=== PATIENT | female | born 1995 | race Caucasian/White ===

== ENCOUNTER 2024-08-22 13:04 | Emergency (ER) | payer OTHER, SELFPAY ==
[2024-08-22 13:25] VITALS: BP 120/66; PULSE 88; RESP 16; TEMP 37.1; O2SAT 100; BMI 23.3
--- NOTE | 2024-08-22 13:40 | DI.US.S_ITS ---
PROCEDURE: US OB <= 14 WEEKS FETUS INDICATIONS: PAIN OUTSIDE/PRIOR DATING DATA: Last menstrual period (LMP): 07/24/2024 LMP-based estimated date of delivery (ANIYA): 04/30/2025 TECHNIQUE: Real-time scanning was performed of the fetus and maternal pelvic organs, with image documentation. Endovaginal scanning was also performed to better visualize the fetus and maternal ovaries. COMPARISON: None. FINDINGS: No intrauterine fluid collection or gestational sac is seen. Within the right adnexa separate from the ovary, there is a probable gestational sac measuring 1.1 x 0.5 x 0.5 cm with yolk sac. No pole is seen. Complex free fluid is seen in the right adnexa. Left ovary is unremarkable. IMPRESSION: Right adnexal mass is seen separate from the ovary with probable gestational sac and yolk sac, highly suspicious for ectopic . Moderate complex free fluid in the right adnexa. Findings were discussed with the referring provider, Dr. Batista, by telephone on 08/22/2024 at 3:29 PM. Approved by: Yomi Vivar M.D. on 08/22/2024 at 15:30
[2024-08-22 13:48] LABS: Add Manual Diff / Slide Review NO; Basophils Absolute Auto 100 /uL (0-100); Basophils Percent Auto 1.1 % (0-2); Eosinophils Absolute Auto 0 /uL (0-450); Eosinophils Percent Auto 0.7 % (2-4); Hematocrit 35.6 % (36-46); Hemoglobin 12.3 g/dL (12.0-16.0); Lymphocytes Absolute Auto 2000 /uL (1100-4500); Lymphocytes Percent Auto 27.6 % (25-40); Mean Corpuscular HGB Conc 34.6 % (30-36); Mean Corpuscular Hemoglobin 34.2 PG (26-34); Mean Corpuscular Volume 98.7 fL (80-100); Monocytes Absolute Auto 500 /uL (0-900); Monocytes Percent Auto 7.2 % (3-14); Neutrophils Absolute Auto 4600 /uL (1500-7000); Neutrophils Percent Auto 63.4 % (50-75); Platelet Count 282 X10^3/uL (150-400); Red Blood Cell Count 3.61 X10^6/uL (4.0-5.2); White Blood Cell Count 7.3 X10^3/uL (4.5-11.0)
[2024-08-22 14:08] LABS: Alanine Aminotransferase 24 IU/L (<35); Albumin 4.8 g/dL (3.5-5.0); Albumin Globulin Ratio 1.7 (1.0-2.8); Alkaline Phosphatase 44 U/L (38-126); Aspartate Aminotransferase 27 IU/L (14-36); BUN Creatinine Ratio 26.6 (6-22); Bilirubin Total 0.4 mg/dL (0.2-1.3); Blood Urea Nitrogen 17 mg/dL (7-17); Calcium 9.1 mg/dL (8.4-10.2); Carbon Dioxide 22 mmol/L (22-32); Chloride 103 mmol/L (98-107); Estimated Glomerular Filt Rate > 60 mL/min (>60); Globulin 2.8 g/dL (1.7-4.1); Glucose 94 mg/dL (70-100); HEMOLYSIS < 15 (0-50); Potassium 3.7 mmol/L (3.4-5.1); Sodium 136 mmol/L (137-145); Total Protein 7.6 g/dL (6.3-8.2)
[2024-08-22 14:26] LABS: HCG Quantitative /Beta subunit 2953.5 mIU/mL
[2024-08-22 15:38] VITALS: BP 124/74; PULSE 100; RESP 16; O2SAT 100
--- NOTE | 2024-08-22 15:47 | ED_ITS ---
HPI - Abdominal Pain General Chief Complaint: Abdominal Pain Stated Complaint: 4-5 weeks gestation severe abd/pelvic pain Time Seen by Provider: 08/22/24 15:21 Source: patient Mode of arrival: Ambulatory History of Present Illness HPI narrative: Patient is a female who presents with severe abdominal and pelvic cramps for the last few hours. She reports experiencing a little nausea this morning and dizziness when the cramps first started. She denies any vaginal bleeding or discharge. This is her first , and she has not yet seen an OBGYN, with her first appointment scheduled at nine weeks. Her last menstrual period was on July 24. She has no significant past medical history. Past Medical History: None reported. Related Data Home Medications Medication Instructions Recorded Confirmed [id number] 1 mg 1 tab PO DAILY 08/22/24 08/22/24 tablet Allergies Allergy/AdvReac Type Severity Reaction Status Date / Time No Known Drug Allergies Allergy Verified 08/22/24 13:29 Review of Systems Review of Systems Narrative: Constitutional: Reports dizziness. Gastrointestinal: Reports severe abdominal and pelvic cramps, nausea. Genitourinary: Denies vaginal bleeding or discharge. Respiratory: No shortness of breath. Cardiovascular: No chest pain or palpitations. Neurologic: No headaches or focal weakness. Musculoskeletal: No joint pain or swelling. Skin: No rashes or lesions. Psychiatric: No anxiety or depression. Patient History Medical History (Updated 08/22/24 @ 18:13 by Mason Batista MD) No significant medical problems Surgical History (Updated 08/22/24 @ 16:35 by Eladia Quezada DO) No significant past surgical history Social History Smoking Status: Never smoker Smoking Status: Never smoker Exam Narrative Exam Narrative: General: Well appearing, well nourished, in no distress. Skin: Good turgor, no rash, unusual bruising or prominent lesions. Head: Normocephalic, atraumatic. HEENT: Conjunctiva clear, EOM intact, PERRL, Mucous membranes moist. Neck: Supple, normal ROM. Heart: Regular rate and rhythm, no murmur or gallop or rubs. Lungs: Clear to auscultation. No rales, rhonchi, or wheezes. Abdomen: Soft and nontender. Bowel sounds normal. No mass or hernia. Back: Spine normal without deformity or tenderness, no CVA tenderness. Extremities: No deformities, edema. Peripheral pulses intact. Neurologic: CN 2-12 normal. Normal sensation and motor exam. Psychiatric: Oriented X3. Normal mood and affect. Initial Vital Signs Initial Vital Signs: Vital Signs Temperature 98.7 F 08/22/24 13:25 Pulse Rate 88 08/22/24 13:25 Respiratory Rate 16 08/22/24 13:25 Blood Pressure 120/66 08/22/24 13:25 Pulse Oximetry 100 08/22/24 13:25 Oxygen Delivery Method Room Air 08/22/24 13:25 Course Orders Ordered: ED Orders 08/22/24 13:40 US OB <= 14 weeks fetus Stat ABO RH Type Stat Complete Blood Count AUTO DIFF Stat Comprehensive Metabolic Panel Stat HCG Quantitative /Beta subunit Stat Discontinued Medications Methotrexate (Methotrexate 25 Mg/Ml Vial) 90 mg 50 mg/m2 (90 mg) IM NOW ONE Stop: 08/22/24 16:32 Vital Signs Vital signs: Vital Signs - 8 hr 08/22/24 13:25 08/22/24 15:38 08/22/24 16:00 Temperature 98.7 F Pulse Rate 88 100 H 134 H Respiratory Rate 16 16 Blood Pressure 120/66 124/74 Pulse Oximetry 100 100 100 Oxygen Delivery Method Room Air Room Air 08/22/24 16:01 08/22/24 16:01 08/22/24 16:30 Temperature Pulse Rate 134 H Respiratory Rate Blood Pressure 169/87 H 123/70 Pulse Oximetry 100 Oxygen Delivery Method 08/22/24 16:30 Temperature Pulse Rate 86 Respiratory Rate Blood Pressure Pulse Oximetry 99 Oxygen Delivery Method MDM - Abdominal Pain Lab Data 08/22/24 13:40 08/22/24 13:40 Labs: Lab Results 08/22/24 Range/Units 13:40 WBC 7.3 (4.5-11.0) X10^3/uL RBC 3.61 L (4.0-5.2) X10^6/uL Hgb 12.3 (12.0-16.0) g/dL Hct 35.6 L (36-46) % MCV 98.7 (80-100) fL MCH 34.2 H (26-34) PG MCHC 34.6 (30-36) % RDW 12.0 (11.6-14.8) % Plt Count 282 (150-400) X10^3/uL Neut % (Auto) 63.4 (50-75) % Lymph % (Auto) 27.6 (25-40) % [place] % (Auto) 7.2 (3-14) % Eos % (Auto) 0.7 L (2-4) % Baso % (Auto) 1.1 (0-2) % Neut # (Auto) 4600 (7428-7359) /uL Lymph # (Auto) 2000 (4240-7218) /uL [place] # (Auto) 500 (0-900) /uL Eos # (Auto) 0 (0-450) /uL Baso # (Auto) 100 (0-100) /uL Sodium 136 L (137-145) mmol/L Potassium 3.7 (3.4-5.1) mmol/L Chloride 103 (98-107) mmol/L Carbon Dioxide 22 (22-32) mmol/L BUN 17 (7-17) mg/dL Creatinine 0.64 (0.52-1.04) mg/dL Estimated GFR > 60 (>60) mL/min BUN/Creatinine Ratio 26.6 H (6-22) Glucose 94 (70-100) mg/dL Calcium 9.1 (8.4-10.2) mg/dL Total Bilirubin 0.4 (0.2-1.3) mg/dL AST 27 (14-36) IU/L ALT 24 (<35) IU/L Alkaline Phosphatase 44 (38-126) U/L Total Protein 7.6 (6.3-8.2) g/dL Albumin 4.8 (3.5-5.0) g/dL Globulin 2.8 (1.7-4.1) g/dL Albumin/Globulin Ratio 1.7 (1.0-2.8) HCG, Quant 2953.5 mIU/mL Blood Type O Positive Point of care testing: Point of Care Testing Test Results Positive Urine Dip Bedside Urine Glucose Negative Bedside Urine Bilirubin - Negative Bedside Urine Ketone - Negative Urine Specific [place] 1.015 Bedside Urine Occult Blood - Negative Bedside Urine pH 6.0 Bedside Urine Protein - Negative Bedside Urine Urobilinogen - Negative Bedside Urine Nitrite - Negative Bedside Urine Leukocytes - Negative Esterase MDM Narrative Medical decision making narrative: INITIAL EVALUATION AND PLAN: - Ultrasound indicates an ectopic located in the adnexa. - Obtain lab work. - Consult with OBGYN specialists for management options. - Monitor for signs of bleeding or complications. - Provide patient support and reassurance. - Ensure patient understands the situation and the importance of follow-up care for future healthy pregnancies. - Differential diagnosis includes but is not limited to: ectopic , miscarriage, pelvic inflammatory disease, ovarian torsion. -patient presents hemodynamically stable in no acute distress but with abdominal cramping in the context of active , patient's ultrasound concerning for right-sided ectopic with moderate free fluid. Patient currently not hypotensive or significantly tachycardic at this time. IV access obtained, basic labs pulled including type and screen as well as blood type and Rh eval. OBGYN called promptly who will come and evaluate the patient in the emergency department review labs imaging and make decision on OR versus other care options. -OBGYN presents at the bedside, patient remains hemodynamically stable and not in any acute distress, patient opts for methotrexate therapy which was administered in the emergency department she will need to follow up for beta rechecks on Sunday and Sunday of next week and continue to follow up with the OBGYN clinic. These followups have been coordinated by the OBGYN team. Patient given instructions for return precautions and discharged from the ED Discharge Plan Departure Patient Disposition: Home Clinical Impression: Ectopic Activity Restrictions/Additional Instructions: You were seen in the emergency department today and found to have an ectopic and were able to speak about this with the OBGYN and opted for medical management with methotrexate. Please follow-up with the outpatient labs on Sunday and Sunday of next week as he will need repeat lab testing. If you have not been contacted by the OBGYN team by Sunday for a follow up appointment please call them to make 1, if you have worsening abdominal pain feelings of passing out, significant vaginal bleeding please return to the ED for re-evaluation. Prescriptions: No Action Pre-F Vitamin 1 mg Tablet 1 tab PO DAILY Referrals: Miscellaneous,DoctorMD [Primary Care Provider] - Eladia Quezada DO [Physician] - Stand Alone Forms: Patient Portal/API/Survey
[2024-08-22 16:00] VITALS: PULSE 134; O2SAT 100
[2024-08-22 16:01] VITALS: BP 169/87; PULSE 134; O2SAT 100
[2024-08-22 16:30] VITALS: BP 123/70; PULSE 86; O2SAT 99
--- NOTE | 2024-08-22 16:30 | P.CONS_ITS ---
History of Present Illness Consult details Date Patient Seen: 08/22/24 Time Patient Seen: 16:10 Chief complaint: 4-5 weeks gestation severe abd/pelvic pain Reason for consult: ectopic Requesting provider: Mason Batista Narrative: 28-year-old at approximately 4-5 weeks' gestation, presented to the ER today for abdominal pain. She reports that the pain started this morning, and is located in her mid pelvic region. She denies nausea or vomiting. Has not had any vaginal bleeding since her last period. Meds Home Medications and Allergies Home Medications Medication Instructions Recorded Confirmed Type [id number]-FA 1 mg 1 tab PO DAILY 08/22/24 08/22/24 History tablet Allergies Allergy/AdvReac Type Severity Reaction Status Date / Time No Known Drug Allergies Allergy Verified 08/22/24 13:29 Review of Systems Review of Systems ROS: Yes All systems reviewed with the patient and are negative except as otherwise documented Exam Vital Signs (past 8 hours): - 08/22/24 13:25 08/22/24 15:38 Temperature 98.7 F Pulse Rate 88 100 H Respiratory Rate 16 16 Blood Pressure 120/66 124/74 Pulse Oximetry 100 100 Oxygen Delivery Method Room Air Room Air Oxygen Delivery Method Room Air Const General: healthy appearing, comfortable and No acute distress Resp Effort & Inspection: normal respiratory effort and able to speak in complete sentences GI Palpation: soft and No guarding Neuro Cognition: normal cognition Speech: speech normal Objective Imaging US - abdomen: Radiologist's impression: FINDINGS: No intrauterine fluid collection or gestational sac is seen. Within the right adnexa separate from the ovary, there is a probable gestational sac measuring 1.1 x 0.5 x 0.5 cm with yolk sac. No pole is seen. Complex free fluid is seen in the right adnexa. Left ovary is unremarkable. IMPRESSION: Right adnexal mass is seen separate from the ovary with probable gestational sac and yolk sac, highly suspicious for ectopic . Moderate complex free fluid in the right adnexa. Findings were discussed with the referring provider, Dr. Batista, by telephone on 08/22/2024 at 3:29 PM. Approved by: Yomi Vivar M.D. on 08/22/2024 at 15:30 Labs 08/22/24 13:40 08/22/24 13:40 Labs: Laboratory Results - last 24 hr 08/22/24 13:40 WBC 7.3 RBC 3.61 L Hgb 12.3 Hct 35.6 L MCV 98.7 MCH 34.2 H MCHC 34.6 RDW 12.0 Plt Count 282 Neut % (Auto) 63.4 Lymph % (Auto) 27.6 [place] % (Auto) 7.2 Eos % (Auto) 0.7 L Baso % (Auto) 1.1 Neut # (Auto) 4600 Lymph # (Auto) 2000 [place] # (Auto) 500 Eos # (Auto) 0 Baso # (Auto) 100 Sodium 136 L Potassium 3.7 Chloride 103 Carbon Dioxide 22 BUN 17 Creatinine 0.64 Estimated GFR > 60 BUN/Creatinine Ratio 26.6 H Glucose 94 Calcium 9.1 Total Bilirubin 0.4 AST 27 ALT 24 Alkaline Phosphatase 44 Total Protein 7.6 Albumin 4.8 Globulin 2.8 Albumin/Globulin Ratio 1.7 HCG, Quant 2953.5 Blood Type O Positive [facility] Medical History (Updated 08/22/24 @ 16:39 by Eladia Quezada DO) No significant medical problems Surgical History (Updated 08/22/24 @ 16:35 by Eladia Quezada DO) No significant past surgical history Tobacco & Substance Use Smoking Status: Never smoker Assessment & Plan Assessment and plan (1) Ectopic : Qualifiers: Intrauterine status: without intrauterine L aterality: right Location of ectopic : tubal Qualified Code(s): O 00.101 - Right tubal without intrauterine Status: Acute Assessment & Plan narrative: 28-year-old with ultrasound findings today consistent with an ectopic . She is hemodynamically stable without signs of rupture at this time. We discussed treatment options with either methotrexate or surgery, and patient desires to proceed with methotrexate therapy. Plan for single dose protocol, to be administered prior to discharge from the ER today. -instructed patient to go to the lab on days 4 and 7 (Sunday and Sunday next week) for HCG quant -instructed patient to stop her vitamin and avoid foods with high folic acid content; we also discussed side effects of abdominal pain and nausea being the primary ones experienced after methotrexate -I will follow up with the patient next Sunday after I see her 2nd HCG value -I reviewed precautions with patient, and advised to return to the ER if she develops severe abdominal pain Time-Based Coding :: [30min] spent with patient and on the chart (including review of chart, obtaining history, exam, reviewing outside data, placing orders, documenting exam and treatment plan, and counseling patient) on [08/22/24]. PROFEE Charge Codes Inpatient or Observation consultation: [id number]
[2024-08-22 17:54] VITALS: BP 112/76; PULSE 88; RESP 16; O2SAT 99
== END 2024-08-22 18:22 | disposition home or self-care (01) ==
PROVIDERS: Emergency Provider Emergency Medicine
DX: O00.90 Unspecified ectopic pregnancy without intrauterine pregnancy (principal); R42 Dizziness and giddiness; R10.2 Pelvic and perineal pain
CPT/HCPCS: 36415; 76801; 80053; 81003; 81025; 84702; 85025; 86900; 86901; 96372; 99284; J9250

== ENCOUNTER 2024-08-24 15:14 | Emergency (ER) | payer OTHER, SELFPAY ==
[2024-08-24 15:46] VITALS: BP 117/76; PULSE 93; RESP 18; TEMP 36.7; O2SAT 100; BMI 24.3
--- NOTE | 2024-08-24 15:53 | DI.US.S_ITS ---
PROCEDURE: US OB <= 14 WEEKS FETUS INDICATIONS: known right ectopic, new pain OUTSIDE/PRIOR DATING DATA: Last menstrual period (LMP): 07/24/2024. LMP-based estimated date of delivery (ANIYA): 04/30/2025. First dating scan (date and location): Not applicable. TECHNIQUE: Real-time scanning was performed of the fetus and maternal pelvic organs, with image documentation. Endovaginal scanning was also performed to better visualize the fetus and maternal ovaries. COMPARISON: [facility], , OB <= 14 WEEKS FETUS, 08/22/2024, 14:49. FINDINGS: There is a right adnexal ectopic again seen, with a gestational sac and a yolk sac. The gestational sac demonstrates a mean diameter of 0.9 cm. No pole is seen at this time. Surrounding increased vascularity can be seen. There is moderate volume of complex free fluid seen. IMPRESSION: The known right adnexal ectopic demonstrates mild increase in size of the gestational sac. Adjacent hemorrhage is seen. We strive to produce accurate, complete, and clear reports of imaging services. To assist us in improving patient care, this report was composed using standard report templates and voice recognition software. Therefore, it may contain abnormal punctuation, insertions and/or omissions. Occasional wrong-word or sound-alike substitutions may occur. Though we review the report and make efforts to correct it, we do recommend that the report be read carefully in proper context to recognize any text inaccuracies. Dictated by: Montana Cedeno M.D. on 08/24/2024 at 16:31 Approved by: Montana Cedeno M.D. on 08/24/2024 at 16:33
[2024-08-24 16:12] LABS: Add Manual Diff / Slide Review NO; Basophils Absolute Auto 100 /uL (0-100); Basophils Percent Auto 0.6 % (0-2); Eosinophils Absolute Auto 0 /uL (0-450); Eosinophils Percent Auto 0.4 % (2-4); Hematocrit 37.7 % (36-46); Lymphocytes Absolute Auto 2100 /uL (1100-4500); Lymphocytes Percent Auto 17.5 % (25-40); Mean Corpuscular HGB Conc 34.5 % (30-36); Mean Corpuscular Hemoglobin 34.1 PG (26-34); Mean Corpuscular Volume 98.9 fL (80-100); Monocytes Absolute Auto 700 /uL (0-900); Monocytes Percent Auto 5.5 % (3-14); Neutrophils Absolute Auto 9000 /uL (1500-7000); Platelet Count 292 X10^3/uL (150-400); Red Blood Cell Count 3.81 X10^6/uL (4.0-5.2); Red Cell Distribution Width 12.1 % (11.6-14.8); White Blood Cell Count 11.8 X10^3/uL (4.5-11.0)
[2024-08-24 16:26] LABS: Alanine Aminotransferase 32 IU/L (<35); Albumin 4.8 g/dL (3.5-5.0); Albumin Globulin Ratio 1.5 (1.0-2.8); Alkaline Phosphatase 53 U/L (38-126); Aspartate Aminotransferase 30 IU/L (14-36); BUN Creatinine Ratio 15.6 (6-22); Bilirubin Total 0.5 mg/dL (0.2-1.3); Blood Urea Nitrogen 10 mg/dL (7-17); Calcium 9.1 mg/dL (8.4-10.2); Carbon Dioxide 20 mmol/L (22-32); Chloride 104 mmol/L (98-107); Estimated Glomerular Filt Rate > 60 mL/min (>60); Globulin 3.1 g/dL (1.7-4.1); Glucose 99 mg/dL (70-100); HEMOLYSIS < 15 (0-50); Sodium 135 mmol/L (137-145); Total Protein 7.9 g/dL (6.3-8.2)
[2024-08-24 18:22] VITALS: BP 119/71; PULSE 78; RESP 16; O2SAT 97
--- NOTE | 2024-08-24 19:50 | PC.NURSE ---
pt informed this nurse that the [facility] would be calling to ask about her condition d/t her significant other being in the [place] as they would be assisting in him returning home to be with her. pt stated that she gave her permission to discuss with the [facility] her condition and to provide any information they needed.
--- NOTE | 2024-08-24 19:59 | ED_ITS ---
HPI - Abdominal Pain General Chief Complaint: Abdominal Pain Stated Complaint: severe abd cramps Time Seen by Provider: 08/24/24 19:59 Source: patient Mode of arrival: Ambulatory History of Present Illness HPI narrative: 28-year-old female history of ectopic comes into the ED from home for evaluation of persistent pain after known ectopic . States that she was given the methotrexate shot on 08/22/2024 but started having worsening abdominal cramping earlier this morning states that she woke up also noted some light brown spotting vaginal discharge therefore decided come into the ED for further evaluation treatment. She denies any other symptoms such as headache visual disturbances chest pain shortness of breath fever chills or any other GI/ symptoms Related Data Home Medications Medication Instructions Recorded Confirmed [id number] 1 mg 1 tab PO DAILY 08/22/24 08/22/24 tablet Allergies Allergy/AdvReac Type Severity Reaction Status Date / Time No Known Drug Allergies Allergy Verified 08/24/24 15:46 Patient History Medical History (Updated 08/24/24 @ 20:56 by Clyde Ledesma DO) No significant medical problems Surgical History (Updated 08/22/24 @ 16:35 by Eladia Quezada DO) No significant past surgical history Social History Smoking Status: Never smoker Smoking Status: Never smoker Exam Initial Vital Signs Initial Vital Signs: Vital Signs Temperature 98.0 F 08/24/24 15:46 Pulse Rate 93 H 08/24/24 15:46 Respiratory Rate 18 08/24/24 15:46 Blood Pressure 117/76 08/24/24 15:46 Pulse Oximetry 100 08/24/24 15:46 Oxygen Delivery Method Room Air 08/24/24 15:46 Course Orders Ordered: ED Orders 08/24/24 15:53 US OB <= 14 weeks fetus Stat 08/24/24 16:02 CBC Auto Diff [Complete Blood Count AUTO DIFF] Stat Comprehensive Metabolic Panel Stat HCG Quantitative /Beta subunit Stat Sodium Chloride (Normal Saline 0.9%) 1,000 mls @ 1,000 mls/hr IV BOLUS ONE Stop: 08/24/24 21:13 Last Admin: 08/24/24 20:39 Dose: 1,000 mls/hr Discontinued Medications Morphine Sulfate (Morphine 4 Mg/Ml Inj) 4 mg IV NOW ONE Stop: 08/24/24 20:15 Last Admin: 08/24/24 20:40 Dose: 4 mg Vital Signs Vital signs: Vital Signs - 8 hr 08/24/24 15:46 08/24/24 18:22 08/24/24 20:40 Temperature 98.0 F Pulse Rate 93 H 78 Respiratory Rate 18 16 Blood Pressure 117/76 119/71 116/69 Pulse Oximetry 100 97 Oxygen Delivery Method Room Air Room Air 08/24/24 20:40 Temperature Pulse Rate 94 H Respiratory Rate Blood Pressure Pulse Oximetry 99 Oxygen Delivery Method MDM - Abdominal Pain Differential Diagnosis Differential diagnosis: Likely other (Ruptured ectopic, ectopic , electrolyte abnormality, urinary tract infection) Lab Data 08/24/24 16:02 08/24/24 16:02 Labs: Lab Results 08/24/24 Range/Units 16:02 WBC 11.8 H (4.5-11.0) X10^3/uL RBC 3.81 L (4.0-5.2) X10^6/uL Hgb 13.0 (12.0-16.0) g/dL Hct 37.7 (36-46) % MCV 98.9 (80-100) fL MCH 34.1 H (26-34) PG MCHC 34.5 (30-36) % RDW 12.1 (11.6-14.8) % Plt Count 292 (150-400) X10^3/uL Neut % (Auto) 76.0 H (50-75) % Lymph % (Auto) 17.5 L (25-40) % [place] % (Auto) 5.5 (3-14) % Eos % (Auto) 0.4 L (2-4) % Baso % (Auto) 0.6 (0-2) % Neut # (Auto) 9000 H (5868-1782) /uL Lymph # (Auto) 2100 (2482-2050) /uL [place] # (Auto) 700 (0-900) /uL Eos # (Auto) 0 (0-450) /uL Baso # (Auto) 100 (0-100) /uL Sodium 135 L (137-145) mmol/L Potassium 4.0 (3.4-5.1) mmol/L Chloride 104 (98-107) mmol/L Carbon Dioxide 20 L (22-32) mmol/L BUN 10 (7-17) mg/dL Creatinine 0.64 (0.52-1.04) mg/dL Estimated GFR > 60 (>60) mL/min BUN/Creatinine Ratio 15.6 (6-22) Glucose 99 (70-100) mg/dL Calcium 9.1 (8.4-10.2) mg/dL Total Bilirubin 0.5 (0.2-1.3) mg/dL AST 30 (14-36) IU/L ALT 32 (<35) IU/L Alkaline Phosphatase 53 (38-126) U/L Total Protein 7.9 (6.3-8.2) g/dL Albumin 4.8 (3.5-5.0) g/dL Globulin 3.1 (1.7-4.1) g/dL Albumin/Globulin Ratio 1.5 (1.0-2.8) HCG, Quant 5528.0 mIU/mL Point of care testing: Urine Dip Bedside Urine Glucose Negative Bedside Urine Bilirubin - Negative Bedside Urine Ketone +/- 5 Urine Specific [place] 1.010 Bedside Urine Occult Blood - Negative Bedside Urine pH 6.0 Bedside Urine Protein - Negative Bedside Urine Urobilinogen - Negative Bedside Urine Nitrite - Negative Bedside Urine Leukocytes - Negative Esterase Imaging Data US - DYE TANK TENDER: Radiologist's Impression: [place] [address] Ultrasound Report Signed Patient: Cathleen Tinoco MR#: [id number] : 1995 Acct:[id number] Age/Sex: 28 / F Date of Service: 08/24/24 Loc: ED Accession Number: [id number] Procedure: US OB <= 14 weeks fetus Ordering Provider: Merlin Coffey MD PROCEDURE: US OB <= 14 WEEKS FETUS INDICATIONS: known right ectopic, new pain OUTSIDE/PRIOR DATING DATA: Last menstrual period (LMP): 07/24/2024. LMP-based estimated date of delivery (ANIYA): 04/30/2025. First dating scan (date and location): Not applicable. TECHNIQUE: Real-time scanning was performed of the fetus and maternal pelvic organs, with image documentation. Endovaginal scanning was also performed to better visualize the fetus and maternal ovaries. COMPARISON: [facility], US, US OB <= 14 WEEKS FETUS, 08/22/2024, 14:49. FINDINGS: There is a right adnexal ectopic again seen, with a gestational sac and a yolk sac. The gestational sac demonstrates a mean diameter of 0.9 cm. No pole is seen at this time. Surrounding increased vascularity can be seen. There is moderate volume of complex free fluid seen. IMPRESSION: The known right adnexal ectopic demonstrates mild increase in size of the gestational sac. Adjacent hemorrhage is seen. MDM Narrative Medical decision making narrative: 28-year-old female history of known ectopic presents for persistent abdominal cramping, patient treated with methotrexate on 08/22/2024. Patient with initial beta HCG 2153.5 onto repeat today 5528. Ultrasound showing persistent right adnexal ectopic with mild increased in size with adjacent hemorrhage. Review of records show that patient was seen here on 08/22/2024 for ectopic , she was hemodynamically stable at the time without any signs of rupture was evaluated by Dr. Quezada who discussed methotrexate versus surgery, states that they opted to try methotrexate therapy for single dose which was given on that day. 2015: Had discussion with Dr. Quezada of OBGYN, agrees that given patient hemodynamically stable with reassuring labs not showing anemia and abdominal exam non peritoneal nature patient not requiring urgent or emergent intervention, states that it is normal to see elevation of hCG only 2 days after methotrexate, she states patient safe to be discharged home with pain management states will call her tomorrow for follow up does have an appointment on Sunday. This was instructed to the patient she verbalized understanding of this strict return precautions were given she verbalized understanding of this and agrees to being discharged home with outpatient follow up Discharge Plan Departure Patient Disposition: Home Clinical Impression: Ectopic Instructions: DI for Ectopic Activity Restrictions/Additional Instructions: Please return to the emergency department immediately if you have large amount of bleeding vaginally or if your pain is unbearable Please follow up with your OBGYN Please read the discharge instructions sheet carefully and bring all papers to all doctor follow-up visits, as it may contain information that your doctor may want to see. Disease processes change and evolve, if your symptoms worsen or if you develop any new symptoms that are concerning to you please return for evaluation. Your evaluation today does not show any evidence of any life- threatening/serious illnesses requiring admission to the hospital or surgery. Please follow-up with your doctor for re-evaluation in approximately 1 day. Seek immediate medical attention for any worrisome symptoms. *If you do not have a primary care provider please contact the [facility] Resource line at [phone]. They will ask some questions about your medical history and help get you set up with a doctor in the community. Prescriptions: No Action Pre-F Vitamin 1 mg Tablet 1 tab PO DAILY Referrals: Miscellaneous,Doctor, [Primary Care Provider] - Stand Alone Forms: Patient Portal/API/Survey
--- NOTE | 2024-08-24 20:06 | PC.NURSE ---
[facility] called and information provided as requested
[2024-08-24] MEDS: SODIUM CHLORIDE 0.9% 1,000 ML 1000 ML IV (20:39)
[2024-08-24 20:40] VITALS: BP 116/69; PULSE 94; O2SAT 99
[2024-08-24] MEDS: MORPHINE 4 MG/ML INJ IV (20:40)
[2024-08-24 21:00] VITALS: BP 124/68; PULSE 86; O2SAT 97
[2024-08-24 21:18] VITALS: BP 117/70; PULSE 78; RESP 16; O2SAT 99
[2024-08-24] MEDS: OXYCODONE/APAP 5/325 PREPACK 1 BOTTLE MISC (21:20)
[2024-08-24] MEDS: ONDANSETRON 4 MG ODT PREPACK 1 BOTTLE MISC (21:20)
== END 2024-08-24 21:28 | disposition home or self-care (01) ==
PROVIDERS: Emergency Medicine; Emergency Provider Student in an Organized Health Care Education/Training Program
DX: O00.80 Other ectopic pregnancy without intrauterine pregnancy (principal)
CPT/HCPCS: 36415; 76801; 80053; 81003; 84702; 85025; 96361; 96374; 99284; J2270

== ENCOUNTER → 2024-08-26 14:27 | Outpatient (CLI) | payer OTHER, SELFPAY | PROVIDERS: Referring Provider Student in an Organized Health Care Education/Training Program; Visit Provider Student in an Organized Health Care Education/Training Program | DX: O00.101 Right tubal pregnancy without intrauterine pregnancy (principal) | CPT/HCPCS: 36415; 84702 ==

== ENCOUNTER 2024-08-28 06:34 | Observation (INO) | payer OTHER, SELFPAY ==
[2024-08-28] VITALS (10 sets, daily range): BP systolic 108–144; BP diastolic 1–87; PULSE 72–110; RESP 8–16; TEMP 36.5–37; O2SAT 98–100; BMI 24.3
--- NOTE | 2024-08-28 | PATH_ITS ---
[facility] Accession Number: [id number] No. of containers..01 Tissue . 01 Material submitted: . fallopian tube - RIGHT FALLOPIAN TUBE AND ECTOPIC . 01 Diagnosis: RIGHT FALLOPIAN TUBE AND ECTOPIC , SALPINGECTOMY: Fallopian tube with intraluminal immature chorionic villi consistent with ectopic . MRV 08/29/2024 1805 Local . 01 Comment: Dr. Geovanna Owens made three unsuccessful attempts to reach Dr. Eladia Quezada' care team on 08-29-24 between 4:49 and 4:[address] Owens left a voice message with her office number on the [address] ob-rn gynecology clinic after-hours automated line. . . . 01 Electronically signed: . Geovanna Owens MD, Pathologist NPI- [id number] . 01 Gross description: . Received in formalin labeled with two patient identifiers and right fallopian tube and ectopic , and consists of a 7.5 cm in length and ranging from 0.4 to 2.0 cm in diameter focally dilated fimbriated fallopian tube. The serosal surface is intact, henry-purple, and the dilated distal aspect of the fallopian tube is inked blue. There is a 1.0 x 0.4 x 0.3 cm aggregate of clotted blood adherent to the fimbriated end. The lumen is marked dilated measuring up to 0.9 cm at the distal fimbriated end of the fallopian tube, and is filled with a henry-white spongy material. No tissue is appreciated. Additionally received in the same container is a 9.5 x 6.2 x 2.0 cm aggregate of dark red clotted blood. sectioning through the clotted blood shows a homogenous bloody cut surface. Soap Chipper sections are submitted as labeled: A1-A2: Complete cross-sections of dilated end of fimbriated fallopian tube. A3-A4: Fimbriated end entirely submitted. (Approximately 75% of the tube is submitted and 100% of the dilated aspect of the fallopian tube is submitted.) ([id number]) /ANTONETTE 08/29/2024 0910 Local . 01 Pathologist provided ICD-10: O00.109 . 01 CPT . 678002 Specimen Comment: A courtesy copy of this report has been sent to [facility] Performed at: [address] [id number] MD Terry Norman MD Phone: [phone]
--- NOTE | 2024-08-28 07:06 | PC.NURSE ---
20 G IV started in left AC. Bloodbank and all blood tubes sent to lab
--- NOTE | 2024-08-28 07:25 | ED.PREGNANCY ---
HPI - General Chief complaint: Abdominal Pain Stated complaint: Ectopic sent from her DR 5 weeks pregnan Time Seen by Provider: 08/28/24 06:53 Source: patient Mode of arrival: Ambulatory History of Present Illness HPI Narrative: patient is about 5 weeks . Patient is seen here 4 days ago for abdominal pain. She has had dark vaginal discharge/ bleeding with some clots. Has had cramping. Patient seen by GUICHO Hunt here on August 22, 2024. Patient elected to have methotrexate injection. Ultrasound did confirm ectopic . No dizziness no syncope. Continues to have pain. She called OBGYN on-call today and instructed to come here for evaluation. She desires to have surgery to have removal of the ectopic . NPO since 11/28 this morning. Related Data Home Medications Medication Instructions Recorded Confirmed xsxkebhx-vyk-Rz-FA 1 mg 1 tab PO DAILY 08/22/24 08/22/24 tablet Allergies Allergy/AdvReac Type Severity Reaction Status Date / Time No Known Drug Allergies Allergy Verified 08/28/24 09:49 Review of Systems Review of Systems Narrative: GENERAL: Negative chills, fatigue, malaise, fever, sweats. HEENT: Negative sinus pain, ear pain, sore throat RESPIRATORY: Negative dyspnea, cough CARDIOVASCULAR: Negative chest pain, palpitations GASTROINTESTINAL: Negative nausea, vomiting, Positiveabdominal pain : Negative dysuria, frequency, hematuria, positive pelvic pain/vaginal bleeding MUSCULOSKELETAL: Negative muscle or bony pain SKIN: Negative rash, skin lesions NEUROLOGIC: Negative weakness, numbness ROS Unobtainable: All systems reviewed & are unremarkable except as noted in HPI and below Exam Narrative Exam Narrative: GENERAL: in no distress, not toxic not dyspneic HEAD: Normocephalic. EYES: Pupils equal round ENT: Mucous membranes moist. NECK: Trachea midline. CARDIOVASCULAR: Regular rate and rhythm RESPIRATORY: Clear to auscultation. Breath sounds equal bilaterally. No wheezes, rales, or rhonchi. GASTROINTESTINAL: Abdomen soft, mild bilateral pelvic tenderness but no peritoneal signs no guarding or rebound. No pain out of portion exam. No CVA tenderness. Bowel sounds are present. EXTREMITIES: No gross deformities. BACK: No flank tenderness. NEURO: AOx4. Clear speech SKIN: Warm and dry PSYCH: Not anxious, is cooperative Initial Vital Signs Initial Vital Signs: Vital Signs Temperature 98.3 F 08/28/24 06:45 Pulse Rate 90 08/28/24 06:45 Respiratory Rate 16 08/28/24 06:45 Blood Pressure 122/69 08/28/24 06:45 Pulse Oximetry 100 08/28/24 06:45 Oxygen Delivery Method Room Air 08/28/24 06:45 Course Orders Ordered: ED Orders 08/28/24 07:36 US OB <= 14 weeks fetus Stat Discontinued Medications Acetaminophen (Acetaminophen 325 Mg Tablet) 975 mg PO NOW ONE Stop: 08/28/24 10:20 Bupivacaine HCl (Bupivacaine 0.25% (Pf) Vial) 30 ml INJ NOW ONE Stop: 08/28/24 10:46 Last Admin: 08/28/24 10:45 Dose: 30 ml Documented By: MARÍA Fentanyl (Fentanyl 100 Mcg/2 Ml Inj) 0 mcg IV Q5M PRN PRN Reason: Pain, Moderate (4-6) Hydromorphone HCl (Hydromorphone 1 Mg Inj) 0 mg IV Q5MIN PRN PRN Reason: Pain, Moderate (4-6) Hydroxyzine HCl (Hydroxyzine 50 Mg/Ml Inj) 25 mg IM NOW PRN PRN Reason: Pain, Mild (1-3) Lactated Ringer's (Lactated Ringers) 1,000 mls @ 1,000 mls/hr IV BOLUS ONE Stop: 08/28/24 09:12 Last Admin: 08/28/24 10:44 Dose: 1,000 mls/hr Documented By: Infusion: 08/28/24 09:31 Dose: Infused Documented By: Admin: 08/28/24 08:31 Dose: 1,000 mls/hr Documented By: SHRUTI Acetaminophen (Ofirmev) 1,000 mg in 100 mls @ 400 mls/hr IV NOW ONE Stop: 08/28/24 11:35 Last Admin: 08/28/24 11:30 Dose: 400 mls/hr Documented By: STEPH Morphine Sulfate (Morphine 4 Mg/Ml Inj) 4 mg IV NOW ONE Stop: 08/28/24 08:14 Last Admin: 08/28/24 08:30 Dose: 4 mg Documented By: SHRUTI Ondansetron HCl (Ondansetron 4 Mg/2 Ml Inj) 4 mg IV NOW ONE Stop: 08/28/24 08:14 Last Admin: 08/28/24 08:31 Dose: 4 mg Documented By: SHRUTI Oxycodone HCl (Oxycodone Ir 5 Mg Tablet) 5 mg PO PACUNOW PRN PRN Reason: Mild or moderate pain Oxycodone HCl (Oxycodone Ir 5 Mg Tablet) 5 mg PO Q4HR PRN PRN Reason: Pain, Moderate (4-6) Vital Signs Vital signs: Vital Signs - 8 hr 08/28/24 06:45 Temperature 98.3 F Pulse Rate 90 Respiratory Rate 16 Blood Pressure 122/69 Pulse Oximetry 100 Oxygen Delivery Method Room Air MDM - OB/Uterine Contractions Lab Data 08/28/24 07:04 08/28/24 07:04 Labs: Lab Results 08/28/24 Range/Units 07:04 WBC 4.0 L (4.5-11.0) X10^3/uL RBC 3.63 L (4.0-5.2) X10^6/uL Hgb 12.4 (12.0-16.0) g/dL Hct 36.1 (36-46) % MCV 99.3 (80-100) fL MCH 34.0 (26-34) PG MCHC 34.3 (30-36) % RDW 11.9 (11.6-14.8) % Plt Count 264 (150-400) X10^3/uL Neut % (Auto) 59.3 (50-75) % Lymph % (Auto) 32.0 (25-40) % [place] % (Auto) 7.1 (3-14) % Eos % (Auto) 1.2 L (2-4) % Baso % (Auto) 0.4 (0-2) % Neut # (Auto) 2400 (1678-9057) /uL Lymph # (Auto) 1300 (9823-8063) /uL [place] # (Auto) 300 (0-900) /uL Eos # (Auto) 0 (0-450) /uL Baso # (Auto) 0 (0-100) /uL Sodium 138 (137-145) mmol/L Potassium 3.8 (3.4-5.1) mmol/L Chloride 102 (98-107) mmol/L Carbon Dioxide 25 (22-32) mmol/L BUN 9 (7-17) mg/dL Creatinine 0.50 L (0.52-1.04) mg/dL Estimated GFR > 60 (>60) mL/min BUN/Creatinine Ratio 18.0 (6-22) Glucose 113 H (70-100) mg/dL Calcium 9.4 (8.4-10.2) mg/dL Total Bilirubin 0.4 (0.2-1.3) mg/dL AST 23 (14-36) IU/L ALT 22 (<35) IU/L Alkaline Phosphatase 42 (38-126) U/L Total Protein 7.4 (6.3-8.2) g/dL Albumin 4.6 (3.5-5.0) g/dL Globulin 2.8 (1.7-4.1) g/dL Albumin/Globulin Ratio 1.6 (1.0-2.8) HCG, Quant 6902.8 mIU/mL Imaging Data US - OB: Radiologist's Impression: [address] [address] Ultrasound Report Signed Patient: Cathleen Tinoco MR#: [id number] : 1995 Acct:[id number] Age/Sex: 28 / F Date of Service: 08/28/24 Loc: ED Accession Number: [id number] Procedure: US OB <= 14 weeks fetus Ordering Provider: Andrzej Barney MD PROCEDURE: US OB <= 14 WEEKS FETUS INDICATIONS: Ectopic OUTSIDE/PRIOR DATING DATA: Last menstrual period (LMP): 07/24/2024. LMP-based estimated date of delivery (ANIYA): 04/30/2025. First dating scan (date and location): 08/28/2024. Estimated date of delivery (ANIYA) from first dating scan: 04/24/2025. TECHNIQUE: Real-time scanning was performed of the fetus and maternal pelvic organs, with image documentation. Endovaginal scanning was also performed to better visualize the fetus and maternal ovaries. COMPARISON: [facility], US, US OB <= 14 WEEKS FETUS, 08/24/2024, 16:44. FINDINGS: No intrauterine gestational sac. No heterotopic identified. Maternal organs: Right adnexal ectopic . There is a pole within the ectopic measuring 0.3 cm. Cardiac motion is detected measuring 106 bpm. A yolk sac is seen. Right adnexa ectopic measures 3.7 x 3.6 x 2.8 cm, estimated volume of 19 cc. (Previously 4 x 2.7 x 2.4 cm), estimated volume of 13 cc). Complex free fluid adjacent to the right adnexa. IMPRESSION: 1. Persistent right ectopic appears increased. Persistent ectopic cardiac motion. Complex fluid adjacent to the right adnexa raises the possibility of ectopic rupture. 2. No intrauterine gestational sac. Preliminary findings were conveyed to Dr. Barney by the knitting supervisor We strive to produce accurate, complete, and clear reports of imaging services. To assist us in improving patient care, this report was composed using standard report templates and voice recognition software. Therefore, it may contain abnormal punctuation, insertions and/or omissions. Occasional wrong-word or sound-alike substitutions may occur. Though we review the report and make efforts to correct it, we do recommend that the report be read carefully in proper context to recognize any text inaccuracies. Dictated by: Lexa Jaramillo M.D. on 08/28/2024 at 8:37 Approved by: Lexa Jaramillo M.D. on 08/28/2024 at 9:01 [facility] Narrative Medical decision making narrative: patient is about 5 weeks . Patient is seen here 4 days ago for abdominal pain. She has had dark vaginal discharge/ bleeding with some clots. Has had cramping. Patient seen by GUICHO Hunt here on August 22, 2024. Patient elected to have methotrexate injection. Ultrasound did confirm ectopic . No dizziness no syncope. Continues to have pain. She called GUICHO on-call today and instructed to come here for evaluation. She desires to have surgery to have removal of the ectopic . NPO since 11/28 this morning. After history and exam NPO CBC CMP quantitative hCG OB consult, exam is reassuring. Patient denies any syncope. No dyspnea. [facility] Medical records reviewed: ER visit here August 24 and office visit August 22 and ultrasound Differential considered: Includes but not limited to ectopic ruptured ectopic Lab Test results independently reviewed as above. Pertinent findings: O-positive blood reviewed from August 22, 2024. WBC 4.0 hemoglobin 12.4, quantity HCG 6902 Imaging studies independently reviewed: Consultations: 7:[address] Gonzales, on-call green end department supervisor, who will inform Dr. Barclay her patient is here for procedure. 8:[address] Gonzales again, preliminary for ultrasound does show concerning ruptured ectopic with heartbeat. He is still trying to get a hold of Dr. Barclay. Morphine Zofran lactated ringers ordered. Re-examination. Right lower quadrant tenderness present now. [address] Barclay, OBGYN, at bedside with patient to talk about surgery today Treatments: morphine Zofran lactated Ringer's 1 L Re-evaluations: 8:30 a.m.. Updated patient still waiting for her OBGYN to call back. Discussion: appropriate for admission for green end department supervisor Surgical Services. Pain is controlled. Diagnosis: Ruptured ectopic Discharge Plan Departure Patient Disposition: Admitted to Surgery Clinical Impression: Ruptured ectopic Admit Date/Time: 08/28/24 09:10 Admit Provider: Eladia Quezada
[2024-08-28 07:35] LABS: Add Manual Diff / Slide Review NO; Basophils Absolute Auto 0 /uL (0-100); Basophils Percent Auto 0.4 % (0-2); Eosinophils Absolute Auto 0 /uL (0-450); Eosinophils Percent Auto 1.2 % (2-4); Hematocrit 36.1 % (36-46); Hemoglobin 12.4 g/dL (12.0-16.0); Lymphocytes Absolute Auto 1300 /uL (1100-4500); Mean Corpuscular HGB Conc 34.3 % (30-36); Mean Corpuscular Volume 99.3 fL (80-100); Monocytes Absolute Auto 300 /uL (0-900); Monocytes Percent Auto 7.1 % (3-14); Neutrophils Absolute Auto 2400 /uL (1500-7000); Neutrophils Percent Auto 59.3 % (50-75); Platelet Count 264 X10^3/uL (150-400); Red Blood Cell Count 3.63 X10^6/uL (4.0-5.2); Red Cell Distribution Width 11.9 % (11.6-14.8)
--- NOTE | 2024-08-28 07:36 | DI.US.S_ITS ---
PROCEDURE: US OB <= 14 WEEKS FETUS INDICATIONS: Ectopic OUTSIDE/PRIOR DATING DATA: Last menstrual period (LMP): 07/24/2024. LMP-based estimated date of delivery (ANIYA): 04/30/2025. First dating scan (date and location): 08/28/2024. Estimated date of delivery (ANIYA) from first dating scan: 04/24/2025. TECHNIQUE: Real-time scanning was performed of the fetus and maternal pelvic organs, with image documentation. Endovaginal scanning was also performed to better visualize the fetus and maternal ovaries. COMPARISON: [facility], OB <= 14 WEEKS FETUS, 08/24/2024, 16:44. FINDINGS: No intrauterine gestational sac. No heterotopic identified. Maternal organs: Right adnexal ectopic . There is a pole within the ectopic measuring 0.3 cm. Cardiac motion is detected measuring 106 bpm. A yolk sac is seen. Right adnexa ectopic measures 3.7 x 3.6 x 2.8 cm, estimated volume of 19 cc. (Previously 4 x 2.7 x 2.4 cm), estimated volume of 13 cc). Complex free fluid adjacent to the right adnexa. IMPRESSION: 1. Persistent right ectopic appears increased. Persistent ectopic cardiac motion. Complex fluid adjacent to the right adnexa raises the possibility of ectopic rupture. 2. No intrauterine gestational sac. Preliminary findings were conveyed to Dr. Barney by the central office operator supervisor We strive to produce accurate, complete, and clear reports of imaging services. To assist us in improving patient care, this report was composed using standard report templates and voice recognition software. Therefore, it may contain abnormal punctuation, insertions and/or omissions. Occasional wrong-word or sound-alike substitutions may occur. Though we review the report and make efforts to correct it, we do recommend that the report be read carefully in proper context to recognize any text inaccuracies. Dictated by: Lexa Jaramillo M.D. on 08/28/2024 at 8:37 Approved by: Lexa Jaramillo M.D. on 08/28/2024 at 9:01
[2024-08-28 07:40] LABS: Alanine Aminotransferase 22 IU/L (<35); Albumin 4.6 g/dL (3.5-5.0); Albumin Globulin Ratio 1.6 (1.0-2.8); Alkaline Phosphatase 42 U/L (38-126); Aspartate Aminotransferase 23 IU/L (14-36); Bilirubin Total 0.4 mg/dL (0.2-1.3); Blood Urea Nitrogen 9 mg/dL (7-17); Calcium 9.4 mg/dL (8.4-10.2); Carbon Dioxide 25 mmol/L (22-32); Chloride 102 mmol/L (98-107); Estimated Glomerular Filt Rate > 60 mL/min (>60); Globulin 2.8 g/dL (1.7-4.1); Glucose 113 mg/dL (70-100); HEMOLYSIS < 15 (0-50); Potassium 3.8 mmol/L (3.4-5.1); Sodium 138 mmol/L (137-145); Total Protein 7.4 g/dL (6.3-8.2)
[2024-08-28 07:57] LABS: HCG Quantitative /Beta subunit 6902.8 mIU/mL
[2024-08-28] MEDS: MORPHINE 4 MG/ML INJ IV (08:30)
[2024-08-28] MEDS: LACTATED RINGERS 1,000 ML 1000 ML IV ×2 (08:31→10:44)
[2024-08-28] MEDS: ONDANSETRON 4 MG/2 ML INJ IV (08:31)
--- NOTE | 2024-08-28 08:55 | PM.GYNHP.1 ---
History of Present Illness History of Present Illness Reason for admission: ectopic Narrative: Cathleen Tinoco is a 28 year old female with known ectopic , s/p methotrexate (day 6 today), presented to the ER today with worsening pelvic pain. She reports the pain is more on her right side of her lower abdomen. [facility] Medical History No significant medical problems Surgical History No significant past surgical history Social History Smoking Status: Never smoker Meds Home Medications and Allergies Home Medications Medication Instructions Recorded Confirmed Type apxsstkt-gol-Po-FA 1 mg 1 tab PO DAILY 08/22/24 08/22/24 History tablet Allergies Allergy/AdvReac Type Severity Reaction Status Date / Time No Known Drug Allergies Allergy Verified 08/24/24 15:46 Review of Systems Review of Systems ROS: Yes All systems reviewed with the patient and are negative except as otherwise documented Exam Vital Signs (past 8 hours): - 08/28/24 06:45 Temperature 98.3 F Pulse Rate 90 Respiratory Rate 16 Blood Pressure 122/69 Pulse Oximetry 100 Oxygen Delivery Method Room Air Oxygen Delivery Method Room Air Const General: healthy appearing and No acute distress Resp Effort & Inspection: normal respiratory effort and able to speak in complete sentences GI Inspection: normal to inspection Palpation: soft, No guarding and tender (mostly RLQ) Other: no rebound tenderness Skin General: no rashes or lesions noted Neuro Cognition: normal cognition Speech: speech normal Extrem General: normal to inspection Psych Mood: congruent mood Affect: normal affect Objective Imaging US - abdomen: Radiologist's impression: FINDINGS: No intrauterine gestational sac. No heterotopic identified. Maternal organs: Right adnexal ectopic . There is a pole within the ectopic measuring 0.3 cm. Cardiac motion is detected measuring 106 bpm. A yolk sac is seen. Right adnexa ectopic measures 3.7 x 3.6 x 2.8 cm, estimated volume of 19 cc. (Previously 4 x 2.7 x 2.4 cm), estimated volume of 13 cc). Complex free fluid adjacent to the right adnexa. IMPRESSION: 1. Persistent right ectopic appears increased. Persistent ectopic cardiac motion. Complex fluid adjacent to the right adnexa raises the possibility of ectopic rupture. 2. No intrauterine gestational sac. Preliminary findings were conveyed to Dr. Barney by the call center operations manager We strive to produce accurate, complete, and clear reports of imaging services. To assist us in improving patient care, this report was composed using standard report templates and voice recognition software. Therefore, it may contain abnormal punctuation, insertions and/or omissions. Occasional wrong-word or sound-alike substitutions may occur. Though we review the report and make efforts to correct it, we do recommend that the report be read carefully in proper context to recognize any text inaccuracies. Dictated by: Lxea Jaramillo M.D. on 08/28/2024 at 8:37 Approved by: Lexa Jaramillo M.D. on 08/28/2024 at 9:01 Labs 08/28/24 07:04 08/28/24 07:04 Labs: Laboratory Results - last 24 hr 08/28/24 07:04 WBC 4.0 L RBC 3.63 L Hgb 12.4 Hct 36.1 MCV 99.3 MCH 34.0 MCHC 34.3 RDW 11.9 Plt Count 264 Neut % (Auto) 59.3 Lymph % (Auto) 32.0 [place] % (Auto) 7.1 Eos % (Auto) 1.2 L Baso % (Auto) 0.4 Neut # (Auto) 2400 Lymph # (Auto) 1300 [place] # (Auto) 300 Eos # (Auto) 0 Baso # (Auto) 0 Sodium 138 Potassium 3.8 Chloride 102 Carbon Dioxide 25 BUN 9 Creatinine 0.50 L Estimated GFR > 60 BUN/Creatinine Ratio 18.0 Glucose 113 H Calcium 9.4 Total Bilirubin 0.4 AST 23 ALT 22 Alkaline Phosphatase 42 Total Protein 7.4 Albumin 4.6 Globulin 2.8 Albumin/Globulin Ratio 1.6 HCG, Quant 6902.8 Assessment & Plan Assessment and plan (1) Ectopic : Qualifiers: Intrauterine status: without intrauterine Laterality: right Location of ectopic : tubal Qualified Code(s): O00.101 - Right tubal without intrauterine Status: Acute Assessment & Plan narrative: 28yo with known ectopic , now with pole and cardiac activity in the adnexa, with concern for increased free fluid. Thus at this point she was counseled and consented for diagnostic laparoscopy with unilateral salpingectomy. We reviewed postop expectations. Plan for same day surgery. Surgery consent We discussed the risks/benefits/alternatives to the proposed procedure, to include but not limited to: -risk of bleeding, requiring medications, blood products, or other procedures as indicated -risk of infection, requiring prolonged hospital stay or other procedures -risk of injury to other structures, including bowel, bladder, blood vessels, nerves, etc. which may also require additional procedures -risk of adverse reaction to anesthesia or medications -risk of venous thromboembolism and associated sequelae -risk of rare complications such as cardiac arrest, or extremely rarely, Patient is aware of the risks, and desires to proceed with planned surgical procedure. Time-Based Coding :: [45min] spent with patient and on the chart (including review of chart, obtaining history, exam, reviewing outside data, placing orders, documenting exam and treatment plan, and counseling patient) on [08/28/24].
--- NOTE | 2024-08-28 08:59 | PC.NURSE ---
With pt permission, RN talked with [facility] with update on pt condition and plan of care.
--- NOTE | 2024-08-28 10:16 | SUR.OPER ---
Lithotomy on padded OR bed, head on pillow, arms secured at sides, tucked. Legs secured in padded yellow fins stirrups.
[2024-08-28] MEDS: BUPIVACAINE 0.25% (PF) VIAL 30 ML INJ (10:45)
--- NOTE | 2024-08-28 11:15 | P.OP_ITS ---
Operative Date/Time/Diagnoses Date of procedure: 08/28/24 Time of procedure: 10:15 Pre-op diagnosis: Ectopic , status post failed methotrexate therapy Post-op diagnosis: same Procedure & Clinicians Procedure: Diagnostic laparoscopy Laparoscopic right salpingectomy Same procedure as scheduled: Yes Indications: 28yo with known ectopic who received methotrexate on 08/22. She represented to the ER today with severe abdominal pain, and was noted to have increased development of the as well as increased free fluid, thus she was counseled and consented for the above procedures. Surgeon: Eladia Quezada Click Yes if Unassisted: Yes Anesthesia Type: General Operative Notes Findings: Blood clot and tissue in the right pelvis. Abnormally dilated right fallopian t ube. Normal appearing uterus, left fallopian tube, and bilateral ovaries. Normal appearing liver edge and gallbladder. Specimen(s): other (right fallopian tube and ectopic ) Estimated Blood Loss (mL): 50 Blood products transfused: none Procedure in detail: The risks, benefits, indications and alternatives of the procedure were reviewed with the patient and informed consent was obtained. The pt was taken to the operating room where general anesthesia was obtained without difficulty. The pt was then placed in the low lithotomy position using gel-padded Josh Stirrups. Sequential compression devices were placed bilaterally for VTE prophylaxis. Pt was then prepped and draped in the usual sterile fashion. The bladder was drained with a straight catheter. A sponge stick was placed in the vagina as a means to manipulate the uterus. Attention was then turned to the patient?s abdomen where a 5mm skin incision was made in the inferior aspect of the umbilicus after injection of 0.25% marcaine. A 5mm trocar and sleeve were then carefully introduced into the peritoneal cavity under direct visualization at a 90-degree angle while tenting up the abdominal wall. Intra-peritoneal placement was confirmed under direct visualization with the laparoscope with entry pressure <5mmHg. A pneumoperitoneum was obtained with several liters of CO2 gas, maximum pressure of 15mmHg. Upon entry into the peritoneal cavity, structures immediately below the incision were inspected and found to be free of injury. Two additional trocars (one 11mm and one 5mm) were placed in the left lateral aspect of the abdominal wall under direct laparoscopic visualization after injection of 0.25% marcaine at each site. A survey of the pt?s abdomen and pelvis was notable for the above findings. Using an atraumatic grasper, the right fallopian tube was tented up. In a stepwise fashion, the right fallopian tube was removed from the fimbriated end to the cornual end with ultimate excision of the fallopian tube using the Ligasure. An endocatch bag was then introduced into the abdomen, and the right fallopian tube, blood clot, and tissue was placed inside and removed via the 11mm port. The pelvis was irrigated, and remaining fluid and blood was suctioned out via suction-president [employer]. A Terrence-John device was used to close the fascia with an 0-vicryl. All pedicles were re-examined and noted to be hemostatic. The gas was then turned off and all CO2 was removed from the pt?s abdomen. The remaining trocars were removed. The skin incision sites were reapproximated using 4-0 monocryl and dermabond. The sponge stick was removed from the vagina. All instruments were confirmed to be removed from the vagina. At the completion of the case the sponge and needle counts were correct x 2. The patient tolerated the procedure well and was taken to the PACU in stable condition. Complications: none Post-operative Condition: stable Disposition: PACU Plan for aftercare: Discharge to home once meeting criteria.
[2024-08-28] MEDS: ACETAMINOPHEN IV 1,000 MG/100 ML VIAL 400 MG IV (11:30)
== END 2024-08-28 12:19 | disposition home or self-care (01) ==
LOC: ED 08:56 → AC 09:10
PROVIDERS: Admitting Provider Student in an Organized Health Care Education/Training Program; Emergency Provider Emergency Medicine; Referring Provider Emergency Medicine; Visit Provider Student in an Organized Health Care Education/Training Program
PROC: (CPT 59151; principal; 2024-08-28 09:45)
DX: O00.101 Right tubal pregnancy without intrauterine pregnancy (principal); Z3A.01 Less than 8 weeks gestation of pregnancy
CPT/HCPCS: 59151; 76801; 76817; 80053; 84702; 85025; 96361; 96374; 96375; 99283; 99284; G0378; J0131; J0330; J1100; J2250; J2270; J2405; J2704; J3010; J3490